=== PATIENT | female | born 1960 | race Two or more races ===

== ENCOUNTER 2025-08-24 08:51 | Day surgery (SDC) | payer SELFPAY ==
[2025-08-22 11:53] LABS: Hematocrit 41.2 % (36.0-46.0); Hemoglobin 13.7 g/dL (12.2-16.2); Mean Corpuscular Hemoglobin 31.0 pg (28.0-32.0); Mean Corpuscular Volume 92.9 fL (80.0-100.0); Nucleated Red Blood Cells % 0.1 %
[2025-08-22 11:59] LABS: Urine Protein, UAD Negative (Negative)
[2025-08-22 13:09] LABS: Alanine Aminotransferase 26 U/L (7-40); Anion Gap 10 (5-15); BUN/Creatinine Ratio 15.3 (10.0-20.0); Blood Urea Nitrogen 15 mg/dL (9-23); Calcium 10.2 mg/dL (8.7-10.4); Carbon Dioxide 28 mmol/L (20-31); Chloride 101 mmol/L (98-107); Glucose 100 mg/dL (74-106); Potassium 4.2 mmol/L (3.5-5.1); Sodium 139 mmol/L (136-145); Total Protein 8.2 g/dL (5.7-8.2)
[2025-08-22 13:10] LABS: Albumin 5.1 g/dL (3.2-4.8); Alkaline Phosphatase 117 U/L (46-116); Bilirubin, Total 0.4 mg/dL (0.2-1.0)
[2025-08-22 13:16] LABS: INR 0.92 (0.9-1.15); Partial Thromboplastin Time 26.3 SEC (24.5-34.5); Prothrombin Time 9.8 sec (9.3-11.8)
[~2025-08-24] VITALS: Ht 172.7 cm; Wt 86.2 kg
[~2025-08-24 08:51] MED LIST: BRIM0.2S17; OXYB5TAB14 PO; VALA1TAB34 PO
[2025-08-24] MEDS ORDERED: GLYCOPYRROLATE 0.2 MG/ML 1ML VIAL ONE (09:55)
[2025-08-24] MEDS ORDERED: LIDOCAINE 2% (LOCAL ANESTH.) PF 5ml SDV ONE (09:55)
[2025-08-24] MEDS ORDERED: fentaNYL CITRATE 100 MCG/2 ML VL ONE (09:55)
[2025-08-24] MEDS ORDERED: PROPOFOL 10 MG/ML 20 ML IV ONE (09:55)
[2025-08-24] MEDS ORDERED: MIDAZOLAM HCL 2MG/2ML 2ml VIAL (1mg/ml) ONE (09:55)
[2025-08-24] MEDS ORDERED: ONDANSETRON HCL 4 MG/2 ML VIAL ONE (09:55)
[2025-08-24 10:36] VITALS: PULSE 83; RESP 15; TEMP 97.2
[2025-08-24 10:51] VITALS: O2SAT 98
--- NOTE | 2025-08-24 10:52 | DVHOP2 ---
Operative Report DATE OF OPERATION: 08/24/25 PROCEDURE: Diagnostic Colonoscopy. PREOPERATIVE INDICATION: The patient is a 65 -year-old female undergoing colonoscopy for colon cancer screening POSTOPERATIVE DIAGNOSES: 1. Mild sigmoid diverticular disease 2. Mild tortuosity and redundancy of the colon 3. Trace internal hemorrhoids otherwise completely normal colonoscopy examination up to the cecum PROCEDURE PERFORMED BY: Rehan Buckley M.D. SCOPE: Olympus videocolonoscope. ASA CLASS: 3. PREOPERATIVE MEDICATIONS: Dr. Daniel Caro PROCEDURE IN DETAIL: After obtaining an informed consent, the patient was placed on left lateral decubitus position. She was then sedated with the above medications. A rectal examination was performed that was normal. The colonoscope was then passed through the anus into the rectosigmoid and through the descending, transverse, and ascending colon up to the cecum with visualization of the appendiceal orifice, base of the cecum and the ileocecal valve. The colonoscope was then withdrawn. No polyps or masses were seen. There was no colitis. Study was slightly limited due to poor prep however after careful irrigation aspiration no gross lesions were seen Patient had [id number] tortuosity and redundancy of the colon especially involving the transverse colon hepatic flexure Patient had mild sigmoid diverticular disease with mild sigmoid muscular hypertrophy On retroflexion and straight on view she had trace internal hemorrhoids The patient tolerated the procedure well without difficulty. WITHDRAWAL TIME: 7 minutes QUALITY OF THE PREP: [place] Bowel Prep score: 8. COMPLICATIONS : None SPECIMENS: None DISPOSITION: Stable D/C to home PLAN: 1. Repeat colonoscopy in 10 years 2. Resume GI soft diet advance as tolerated 3. Increase fluid and fiber intake 4. Outpatient follow up with me in 2-4 weeks to review results and discuss further management REHAN BUCKLEY MD Aug 24, 2025 10:52
[2025-08-24 11:06] VITALS: BP 127/90; PULSE 79; RESP 18
--- NOTE | 2025-08-24 11:16 | DVHOP2 ---
Operative Report DATE OF OPERATION: 08/24/25 PROCEDURE: Upper Endoscopy with biopsy and dilate esophagus unguided. PREOPERATIVE INDICATION: The patient is a 65 -year-old female undergoing endoscopy for intermittent dysphagia POSTOPERATIVE DIAGNOSES: 1. 2-3 cm sliding-type hiatal hernia with grade a to B erosive esophagitis 2. Moderate gastritis with hyperemia erythema and mucosal edema 3. Otherwise normal examination up to the 2nd and 3rd part of the duodenum 4. GE junction was dilated with Lemus number [id number] PROCEDURE PERFORMED BY: Rehan Kendrick GI NURSE: Tamia SCOPE: Olympus videoendoscope. ASA CLASS: 3. PREOPERATIVE MEDICATIONS: Mac sedation, Dr. Sanchez PROCEDURE IN DETAIL: After obtaining an informed consent, the patient was placed on left lateral decubitus position. The patient was then sedated with the above medications. A bite block was placed between her teeth. The endoscope was then passed through the oropharynx, into the esophagus, and through the stomach and pylorus up to the second and third part of the duodenum. The endoscope was then withdrawn. The 2nd and 3rd part of the duodenum and the duodenal bulb were normal. Duodenal biopsies were obtained The pre-pyloric area antrum and body showed mild gastritis on retroflexion there was inflammation and mucosal edema of the proximal stomach Gastric biopsies were obtained. The endoscope was then withdrawn into distal esophagus Patient had a 2 cm sliding-type hiatal hernia with grade a to B erosive esophagitis. 20 dilator number 48 was passed through the distal esophagus with no significant resistance Repeat endoscopy confirmed adequate dilatation and there was minimal mucosal oozing GE junction biopsies were obtained. The remaining distal and proximal esophagus and oropharynx were unremarkable The patient tolerated the procedure well without difficulty. COMPLICATIONS : None SPECIMENS: Duodenal biopsies Gastric biopsies EG junction biopsies DISPOSITION: Transfer back to the floor D/C to home PLAN: 1. Await for biopsy result 2. Will place pt on omeprazole 20 mg p.o. in the morning 3. Carafate 1 g p.o. at bedtime 4. DC aspirin NSAIDs smoking alcohol 5. Outpatient follow up with me in 2-4 weeks to review results and discuss further management and advance diet as tolerated REHAN KENDRICK MD Aug 24, 2025 11:15
== END 2025-08-24 11:26 | disposition home or self-care (01) ==
LOC: GI 08:51
PROVIDERS: ATTEND Internal Medicine Gastroenterology
DX: Z12.11 Encounter for screening for malignant neoplasm of colon (principal); R13.19 Other dysphagia; K29.50 Unspecified chronic gastritis without bleeding; K57.30 Diverticulosis of large intestine without perforation or abscess without bleeding; K63.89 Other specified diseases of intestine; K64.8 Other hemorrhoids; K44.9 Diaphragmatic hernia without obstruction or gangrene; K22.10 Ulcer of esophagus without bleeding; N18.9 Chronic kidney disease, unspecified; Z98.891 History of uterine scar from previous surgery; Z98.890 Other specified postprocedural states; Z88.8 Allergy status to other drugs, medicaments and biological substances; Z79.899 Other long term (current) drug therapy
CPT/HCPCS: 36415; 43239; 43450; 45378; 80053; 81001; 85025; 85610; 85730; 88305; 88312; 88313; 88342; J2003; J2250; J2405; J2704; J3010; J7030